=== PATIENT | female | born 1955 | race Caucasian/White ===

== ENCOUNTER 2016-12-22 14:33 | Emergency (ER) | payer BC ==
[~2016-12-22] VITALS: Ht 157.5 cm; Wt 125.9 kg
[2016-12-22 15:24] LABS: HEMATOCRIT 40.3 % (36.0-46.0); MCH 30.2 PG (29.0-34.0); MCHC 33.3 G/DL (30.0-36.0); MCV 90.8 FL (83-99); MEAN PLAT.VOLUME 10.6 uM^3 (9.5-12.4); PLATELET COUNT 182 K/uL (156-360); RBC DIS.WIDTH-CV 12.8 % (11.8-14.6); RBC DIS.WIDTH-SD 42.7 % (39-53); RED BLOOD COUNT 4.44 M/uL (3.80-5.20); WHITE BLOOD COUNT 8.7 K/uL (4.1-10.2)
[2016-12-22 15:32] LABS: CHLORIDE 103 mEq/L (99-109); SODIUM 140 mEq/L (136-147)
[2016-12-22 15:34] LABS: GLUCOSE 140 mg/dL (70-99)
[2016-12-22 15:35] LABS: ANION GAP 6 MEQ/L (2-14)
[2016-12-22 15:36] LABS: TOTAL BILIRUBIN 0.4 mg/dL (0.0-1.0)
[2016-12-22 15:37] LABS: ALKALINE PHOSPHATASE 57 IU/L (3-129)
[2016-12-22 15:38] LABS: GFR ESTIMATE (CALCULATED) > 59 mL/min/
[2016-12-22 15:39] LABS: UREA NITROGEN (BUN) 14 mg/dL (9-23)
[2016-12-22 15:43] LABS: TROP-I INTERPRETATION NEGATIVE; TROPONIN-I < 0.01 ng/mL (0.0-0.30)
[2016-12-22] MEDS ORDERED: ATARAX,VISTARIL25 MG PO (16:28)
[2016-12-22 16:40] VITALS: BP 118/73
== END 2016-12-22 16:45 | disposition home or self-care (01) ==
LOC: EME 14:33
PROVIDERS: Nurse Practitioner Family
DX: I10 Essential (primary) hypertension (principal); F43.9 Reaction to severe stress, unspecified; T46.5X5A Adverse effect of other antihypertensive drugs, initial encounter; E66.9 Obesity, unspecified; Z68.43 Body mass index [BMI] 50.0-59.9, adult; Z87.891 Personal history of nicotine dependence
CPT/HCPCS: 71020; 80053; 84484; 85027; 93005; 99281; 99284